=== PATIENT | male | born 1945 | race Caucasian/White ===

== ENCOUNTER 2023-11-26 10:11 | Inpatient (IN) ==
[2023-11-26] MEDS: NOZIN NASAL SANITIZER TP ONE (10:21)
[2023-11-26] MEDS: LR 1,000 ML IV 1,000 ML IV ONE (10:22)
[2023-11-26 11:35] VITALS: BMI 43.3
[2023-11-26] MEDS: ANCEF VIAL 1 GRAM ONE (12:44)
[2023-11-26] MEDS: NS 100 ML IV 100 ML ONE (12:44)
[2023-11-26] MEDS: FENTANYL VIAL INJ 100 mcg ONE ×2 (12:50→14:17)
[2023-11-26] MEDS: DIPRIVAN VIAL 20 ML ONE (12:50)
[2023-11-26] MEDS: BRIDION ONE (12:50)
[2023-11-26] MEDS: REGLAN INJ 10 MG VIAL ONE (12:50)
[2023-11-26] MEDS: ZOFRAN INJ 4 MG VIAL ONE (12:50)
[2023-11-26] MEDS: AMIDATE INJ 40 MG VIAL ONE (12:50)
[2023-11-26] MEDS: PEPCID 20 MG VIAL ONE (12:50)
[2023-11-26] MEDS: ZEMURON 100 MG VIAL ONE (12:50)
[2023-11-26] MEDS: VERSED ONE (12:50)
[2023-11-26] MEDS ORDERED: ZOFRAN INJ 4 MG VIAL IVP PRN ×2 (12:53→15:23)
[2023-11-26] MEDS ORDERED: BARHEMSYS INJ IVP PRN (12:53)
[2023-11-26] MEDS ORDERED: BENADRYL INJ 50 MG VIAL IVP PRN (12:53)
[2023-11-26] MEDS: QUELICIN (OR ANECTINE) ONE (12:56)
[2023-11-26] MEDS: ULTANE GAS IN ONE (13:03)
[2023-11-26] MEDS: MARCAINE 0.25% INJ ONE (13:14)
[2023-11-26] MEDS: DECADRON INJ ONE (13:16)
[2023-11-26] MEDS: ZYNRELEF 200-6 MG/7 ML VIAL ER SOLN IL ONE (14:37)
[2023-11-26] MEDS: DILAUDID INJ IVP PRN (15:16)
[2023-11-26] MEDS: DILAUDID INJ ONE ×2 (15:16→15:31)
[2023-11-26] MEDS ORDERED: DILAUDID INJ IVP PRN (15:23)
[2023-11-26] MEDS ORDERED: TYLENOL 325 MG TAB PO PRN (15:23)
[2023-11-26] MEDS: LR 1,000 ML IV 1,000 ML IV SCH (17:51)
[2023-11-26] MEDS: COLACE CAP 100 MG PO SCH (21:26)
[2023-11-26] MEDS: ANCEF VIAL 1 GRAM 2 G in NS 100 ML IV 100 ML IV SCH (21:27)
[2023-11-26] MEDS: NOZIN NASAL SANITIZER TP SCH (21:27)
[2023-11-26] MEDS ORDERED: ANCEF VIAL 1 GRAM IVP SCH (22:00)
[2023-11-27] MEDS: DILAUDID INJ IVP PRN (03:00)
[2023-11-27 05:26] LABS: BLOOD UREA NITROGEN 22 mg/dL (7-18); CALCIUM 8.1 mg/dL (8.5-10.1); CARBON DIOXIDE 19.6 mmol/L (21-32); CHLORIDE 106 mmol/L (98-107); CREATININE 1.18 mg/dL (0.70-1.30); GLUCOSE 109 mg/dL (65-99); POTASSIUM 4.6 mmol/L (3.5-5.1); SODIUM 137 mmol/L (136-145); eGFR NON BLACK RACES > 60 (>60)
--- NOTE | 2023-11-27 06:26 | NOTE.SOAP ---
Soap Note Note for Day of Date of Exam: 11/27/23 Subjective Data Subjective Data: Patient is POD1 s/p total ankle replacement and he doing well this am, states that the pain medication is helping. Denies any constitutional symptoms except a scratchy throat which is normal after anesthesia. 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 He will need PT eval and the plan is for him to go to [place] for rehab upon discharge. PT gait train and eval: NWB to the E in a split with walker or crutches. Pain medication on schedule as well as DVT ppx. I will change his dressings tomorrow am. He is okay for discharge to rehab once he works with PT.
[2023-11-27] MEDS: LOVENOX INJ 40 MG SYR SC SCH (09:39)
[2023-11-27] MEDS: ENTRESTO 24/26 MG TABLET PO SCH (13:46)
[2023-11-27] MEDS: TOPROL XL PO SCH (13:46)
[2023-11-27] MEDS ORDERED: ENTRESTO 24/26 MG TABLET PO SCH (21:00)
[2023-11-27] MEDS: ELIQUIS PO SCH (21:41)
[2023-11-28 06:14] LABS: BASOPHILS % (AUTO) 0.5 % (0.2-1.0); EOSINOPHILS # (AUTO) 0.1 x10^3/uL (0.0-0.2); HEMOGLOBIN 13.7 g/dL (13.5-18.0); LYMPHOCYTES # (AUTO) 1.8 X10^3/uL (1.3-2.9); LYMPHOCYTES % (AUTO) 24.8 % (21.0-51.0); MEAN CORPUSCULAR HEMOGLOBIN 34.1 pg (27.0-34.0); MEAN CORPUSCULAR HGB CONC 33.4 g/dL (33.0-35.0); MEAN PLATELET VOLUME 8.1 fL (7.4-11.0); MONOCYTES # (AUTO) 0.9 x10^3/uL (0.3-0.8); MONOCYTES % (AUTO) 12.6 % (0.0-13.0); NEUTROPHILS # (AUTO) 4.4 x10^3/uL (2.2-4.8); NEUTROPHILS % (AUTO) 61.1 % (42.0-75.0); PLATELET COUNT 145 X10^3/uL (150.0-450.0); RED BLOOD COUNT 4.02 X10^6/uL (4.7-6.0); RED CELL DISTRIBUTION WIDTH 13.6 % (11.6-16.5); WHITE BLOOD COUNT 7.2 X10^3/uL (3.6-10.0)
[2023-11-28] MEDS ORDERED: TOPROL XL PO SCH (09:00)
[2023-11-28] MEDS: HALLS COUGH DROPS MT PRN (09:50)
[2023-11-28] MEDS: RHINOCORT ALLERGY NASAL SPRAY ENOSTRIL SCH (11:03)
[2023-11-28] MEDS: DILAUDID INJ IVP PRN (12:17)
--- NOTE | 2023-11-28 14:15 | NOTE.SOAP ---
Soap Note Note for Day of Date of Exam: 11/27/23 Subjective Data Subjective Data: Patient is POD2 s/p total ankle replacement and he doing well this am, states that the pain medication is helping. Denies any constitutional symptoms except a scratchy throat which is normal after anesthesia. No SOB, nausea, vomiting, fever, chills or SOB Objective Data Objective Data: Incision well coapted with mild edema expected at this course in the post op period. 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 Patient pending rehab transport. PT gait train and eval: NWB to the E in a split with walker or crutches. Pain medication on schedule as well as DVT ppx. Dressing change today consisting of xeroform, gauze, abd, webril, splint and milad wrap. Discussed patient with case managemetn, he is to be going to rehab on Friday
[2023-11-28] MEDS: MIRALAX POWDER (1 DOSE 17 G) PO SCH (20:05)
[2023-11-29 05:45] LABS: BASOPHILS % (AUTO) 0.4 % (0.2-1.0); EOSINOPHILS # (AUTO) 0.1 x10^3/uL (0.0-0.2); EOSINOPHILS % (AUTO) 1.9 % (0.9-2.9); HEMATOCRIT 41.9 % (42.0-54.0); HEMOGLOBIN 14.2 g/dL (13.5-18.0); LYMPHOCYTES # (AUTO) 1.2 X10^3/uL (1.3-2.9); LYMPHOCYTES % (AUTO) 16.9 % (21.0-51.0); MEAN CORPUSCULAR HEMOGLOBIN 34.1 pg (27.0-34.0); MEAN CORPUSCULAR HGB CONC 33.8 g/dL (33.0-35.0); MEAN PLATELET VOLUME 8.2 fL (7.4-11.0); MONOCYTES # (AUTO) 1.1 x10^3/uL (0.3-0.8); MONOCYTES % (AUTO) 15.4 % (0.0-13.0); NEUTROPHILS # (AUTO) 4.5 x10^3/uL (2.2-4.8); NEUTROPHILS % (AUTO) 65.4 % (42.0-75.0); PLATELET COUNT 171 X10^3/uL (150.0-450.0); RED BLOOD COUNT 4.15 X10^6/uL (4.7-6.0); RED CELL DISTRIBUTION WIDTH 13.4 % (11.6-16.5); WHITE BLOOD COUNT 6.9 X10^3/uL (3.6-10.0)
[2023-11-29 05:57] LABS: ALANINE AMINOTRANSFERASE 14 Units/L (12-78); ALBUMIN 2.8 g/dL (3.4-5.0); ALKALINE PHOSPHATASE 50 Units/L (46-116); ASPARTATE AMINO TRANSFERASE 15 Units/L (15-37); BLOOD UREA NITROGEN 18 mg/dL (7-18); CALCIUM 8.7 mg/dL (8.5-10.1); CARBON DIOXIDE 27.3 mmol/L (21-32); CHLORIDE 105 mmol/L (98-107); COR CA(FOR HYPOALB) 9.7 mg/dL (8.5-10.1); CREATININE 1.01 mg/dL (0.70-1.30); GLUCOSE 83 mg/dL (65-99); POTASSIUM 4.1 mmol/L (3.5-5.1); SODIUM 139 mmol/L (136-145); TOTAL PROTEIN 6.2 g/dL (6.4-8.2); eGFR NON BLACK RACES > 60 (>60)
--- NOTE | 2023-11-29 08:34 | NOTE.SOAP ---
Soap Note Note for Day of Date of Exam: 11/29/23 Subjective Data Subjective Data: Patient is POD3 s/p total ankle replacement and he doing well this am, states that the pain medication is helping. Denies any constitutional symptoms except he has not had a bowel movement since the surgery. 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 Patient pending rehab transport. PT gait train and eval: NWB to the RLE in a split with walker or crutches. Pain medication on schedule as well as DVT ppx. Dressing c/d/i this am. Patient to be going to rehab on Friday
[2023-11-29] MEDS: LINZESS PO ONE (10:59)
[2023-11-29] MEDS: VITAMIN B-12 PO SCH (10:59)
[2023-11-29] MEDS: PERCOCET TAB 5/325 MG PO PRN (13:55)
[2023-11-30 05:22] LABS: BASOPHILS % (AUTO) 0.8 % (0.2-1.0); EOSINOPHILS # (AUTO) 0.2 x10^3/uL (0.0-0.2); EOSINOPHILS % (AUTO) 3.9 % (0.9-2.9); HEMATOCRIT 45.5 % (42.0-54.0); HEMOGLOBIN 15.4 g/dL (13.5-18.0); LYMPHOCYTES # (AUTO) 1.2 X10^3/uL (1.3-2.9); LYMPHOCYTES % (AUTO) 20.2 % (21.0-51.0); MEAN CORPUSCULAR HEMOGLOBIN 34.3 pg (27.0-34.0); MEAN CORPUSCULAR HGB CONC 33.9 g/dL (33.0-35.0); MEAN CORPUSCULAR VOLUME 101.1 fL (80.0-100.0); MEAN PLATELET VOLUME 8.1 fL (7.4-11.0); NEUTROPHILS # (AUTO) 3.5 x10^3/uL (2.2-4.8); NEUTROPHILS % (AUTO) 59.1 % (42.0-75.0); PLATELET COUNT 189 X10^3/uL (150.0-450.0); RED BLOOD COUNT 4.51 X10^6/uL (4.7-6.0); RED CELL DISTRIBUTION WIDTH 13.1 % (11.6-16.5)
[2023-11-30 05:33] LABS: ALANINE AMINOTRANSFERASE 14 Units/L (12-78); ALKALINE PHOSPHATASE 60 Units/L (46-116); ASPARTATE AMINO TRANSFERASE 17 Units/L (15-37); BLOOD UREA NITROGEN 16 mg/dL (7-18); CARBON DIOXIDE 22.9 mmol/L (21-32); CHLORIDE 104 mmol/L (98-107); COR CA(FOR HYPOALB) 9.8 mg/dL (8.5-10.1); CREATININE 1.02 mg/dL (0.70-1.30); GLUCOSE 92 mg/dL (65-99); POTASSIUM 3.8 mmol/L (3.5-5.1); SODIUM 139 mmol/L (136-145); TOTAL PROTEIN 6.8 g/dL (6.4-8.2); eGFR NON BLACK RACES > 60 (>60)
[2023-11-30] MEDS ORDERED: CONSULT PHARMACY - POTASSIUM & MAGNESIUM XX SCH (08:00)
[2023-11-30] MEDS: K-DUR TAB 20 MEQ PO SCH (08:57)
[2023-11-30] MEDS: LASIX IVP ONE (12:30)
[2023-11-30] MEDS: TOPROL XL PO ONE (12:30)
[2023-11-30] MEDS ORDERED: LASIX IVP ONE (16:48)
[2023-11-30] MEDS ORDERED: TOPROL XL PO ONE (16:49)
[2023-11-30] MEDS: MAG-OX TAB PO SCH (18:17)
[2023-11-30] MEDS: BUTT CREAM (COMPOUND) TOP PRN (19:25)
[2023-11-30] MEDS: LOPRESSOR INJ 5 MG AMP IVP ONE (20:05)
[2023-11-30] MEDS: MIRALAX POWDER (1 DOSE 17 G) PO SCH (20:32)
--- NOTE | 2023-12-01 05:39 | EKG ---
Test Reason : shortness of breath Blood Pressure : */* mmHG Vent. Rate : 102 BPM Atrial Rate : * BPM P-R Int : * ms QRS Dur : 86 ms QT Int : 342 ms P-R-T Axes : * 22 25 degrees QTc Int : 445 ms Atrial fibrillation with rapid ventricular response Low voltage QRS Possible Anterolateral infarct (cited on or before 14-NOV-2023) Abnormal ECG When compared with ECG of 14-NOV-2023 09:35, Questionable change in initial forces of Lateral leads Confirmed by Robin Marroquin MD ([id number] on 12/01/2023 7:35:19 AM Referred By: Confirmed By: Robin Marroquin MD
[2023-12-01] MEDS: LASIX IVP ONE ×2 (05:52→09:19)
[2023-12-01 06:03] LABS: BASOPHILS # (AUTO) 0.1 X10^3/uL (0.0-0.1); BASOPHILS % (AUTO) 0.9 % (0.2-1.0); EOSINOPHILS # (AUTO) 0.2 x10^3/uL (0.0-0.2); EOSINOPHILS % (AUTO) 3.8 % (0.9-2.9); HEMATOCRIT 44.8 % (42.0-54.0); HEMOGLOBIN 15.1 g/dL (13.5-18.0); LYMPHOCYTES # (AUTO) 1.3 X10^3/uL (1.3-2.9); LYMPHOCYTES % (AUTO) 19.8 % (21.0-51.0); MEAN CORPUSCULAR HGB CONC 33.8 g/dL (33.0-35.0); MEAN CORPUSCULAR VOLUME 100.5 fL (80.0-100.0); MEAN PLATELET VOLUME 7.7 fL (7.4-11.0); MONOCYTES # (AUTO) 1.1 x10^3/uL (0.3-0.8); MONOCYTES % (AUTO) 16.3 % (0.0-13.0); NEUTROPHILS # (AUTO) 3.9 x10^3/uL (2.2-4.8); NEUTROPHILS % (AUTO) 59.2 % (42.0-75.0); PLATELET COUNT 204 X10^3/uL (150.0-450.0); RED BLOOD COUNT 4.45 X10^6/uL (4.7-6.0); WHITE BLOOD COUNT 6.5 X10^3/uL (3.6-10.0)
[2023-12-01 06:16] LABS: ALANINE AMINOTRANSFERASE 14 Units/L (12-78); ALBUMIN 2.9 g/dL (3.4-5.0); ALKALINE PHOSPHATASE 56 Units/L (46-116); ASPARTATE AMINO TRANSFERASE 18 Units/L (15-37); BLOOD UREA NITROGEN 21 mg/dL (7-18); CHLORIDE 104 mmol/L (98-107); COR CA(FOR HYPOALB) 9.9 mg/dL (8.5-10.1); CREATININE 1.01 mg/dL (0.70-1.30); GLUCOSE 94 mg/dL (65-99); MAGNESIUM 1.8 mg/dL (2.0-2.9); POTASSIUM 3.8 mmol/L (3.5-5.1); SODIUM 142 mmol/L (136-145); TOTAL PROTEIN 6.5 g/dL (6.4-8.2); eGFR NON BLACK RACES > 60 (>60)
[2023-12-01] MEDS ORDERED: CONSULT PHARMACY - POTASSIUM & MAGNESIUM XX SCH (07:00)
[2023-12-01] MEDS: TOPROL XL PO SCH (08:52)
[2023-12-01] MEDS: K-DUR TAB 20 MEQ PO SCH (08:52)
[2023-12-01] MEDS: MAG-OX TAB PO SCH (08:53)
[2023-12-01 09:34] VITALS: PULSE 82; RESP 20; TEMP 97.8
[2023-12-01] MEDS: MAGNESIUM SULFATE 1 GRAM/100 mL PREMIX 1 G/100 ML BAG IV SCH (09:54)
[2023-12-01] MEDS: MAG-OX TAB PO ONE (10:13)
[2023-12-01] MEDS: LASIX PO ONE (10:14)
[2023-12-01 12:17] VITALS: BP 147/82; O2SAT 96
== END 2023-12-01 15:30 | DRG 469 ==
LOC: MED/SURG → OBSVTOIN 10:11 → EDUNIT# 10:45
PROVIDERS: ADMIT Obstetrics & Gynecology Obstetrics; ATTEND Obstetrics & Gynecology Obstetrics
DX: M21.171 Varus deformity, not elsewhere classified, right ankle; I10 Essential (primary) hypertension; R06.02 Shortness of breath; R26.89 Other abnormalities of gait and mobility; I48.91 Unspecified atrial fibrillation; M12.571 Traumatic arthropathy, right ankle and foot; E83.42 Hypomagnesemia